=== PATIENT | male | born 2000 | race Caucasian/White ===

== ENCOUNTER 2020-04-08 05:43 | Outpatient (RCR) | payer OTHER ==
[~2020-04-08] VITALS: Ht 180.3 cm; Wt 78.6 kg
== END 2020-04-08 12:13 | disposition home or self-care (01) ==
LOC: PREOP 05:43
PROVIDERS: ATTEND Surgery
DX: Z01.812 Encounter for preprocedural laboratory examination (principal); K40.90 Unilateral inguinal hernia, without obstruction or gangrene, not specified as recurrent

== ENCOUNTER 2020-04-14 09:48 | Day surgery (SDC) | payer OTHER ==
[~2020-04-14] VITALS: Ht 180.3 cm; Wt 78.6 kg
[2020-04-14] VITALS (9 sets, daily range): BP systolic 120–139; BP diastolic 73–87
[2020-04-14] MEDS ORDERED: WATER (STERILE) FOR INJECTION 10 ML ONE (10:10)
[2020-04-14] MEDS ORDERED: ceFAZolin INJECTION 1,000 MG ONE (10:10)
[2020-04-14] MEDS: LACTATED RINGERS 1,000 ML IV PRN ×2 (10:12→12:08)
[2020-04-14] MEDS ORDERED: ceFAZolin INJECTION 1,000 MG in WATER (STERILE) FOR INJECTION 10 ML IV ONE (10:15)
[2020-04-14] MEDS ORDERED: MIDAZOLAM 2 MG/2 ML (VERSED) VIAL ONE (11:26)
[2020-04-14] MEDS ORDERED: fentaNYL INJECTION 100 MCG/2 ML AMP ONE (11:26)
[2020-04-14] MEDS ORDERED: LIDOCAINE/EPI 1%-1:100,000 (XYLOCAINE) 50 ML ONE (11:28)
[2020-04-14] MEDS ORDERED: proPOfol 200 MG/20 ML (DIPRIVAN) VIAL IV ONE ×2 (11:32→12:16)
[2020-04-14] MEDS ORDERED: LIDOCAINE PF 2% 5 ML (XYLOCAINE) VIAL ONE (11:32)
[2020-04-14] MEDS ORDERED: ONDANSETRON 4 MG/2 ML (SDV) Z0FRAN ONE (11:32)
[2020-04-14] MEDS ORDERED: SEVOFLURANE (ULTANE) 15 ML INHAL SOLN ONE ×3 (11:32→12:24)
--- NOTE | 2020-04-14 12:24 | Progress Note-Post Operative ---
Post-Operative Progess Note Surgeon (s)/Drafter Landscape (s) Surgeon PHILIPPE DUKE DO Drafter Landscape: Dr. Amaro to assist in retraction disssection and closure. Pre-Operative Diagnosis right inguinal hernia Post-Operative Diagnosis direct right inguinal hernia Procedure & Operative Findings Date of Procedure 04/14/20 Procedure Performed/Findings PROCEDURE: Open right direct inguinal hernia repair. COMPLICATIONS: None. INDICATIONS: The patient is a 20 , male inguinal hernia. He understands risks and benefits of procedure and wished to proceed with procedure. Consent was signed in the chart. DESCRIPTION OF PROCEDURE: The patient was taken to the operating suite, was prepped and draped in sterile fashion. Surgical pause was performed. Local anesthetic was infiltrated and a 15 blade scalpel was used to make a skin incision in the lower quadrant. Cautery was used to dissect down the external oblique, which was then opened down through the external ring. The spermatic cord was then dissected around. Frankie drain was placed around it and was retracted out of the way. No indirect hernia present. There was a direct defect present. Contents were reduced. The transversalis fascia was then sutured to the shelving edge using 2-0 Vicryl. A ProGrip mesh was then cut to size, which was then secured to Doroteo's ligament and then incorporated around the spermatic cord in the usual fashion and placed under the external oblique. The wound was then irrigated with copious amounts of irrigation. The external oblique was then closed using 3-0 Vicryl in running fashion recreating the external ring. The subcutaneous tissue was then reapproximated with 3-0 Vicryl and the skin was then closed using 4-0 Monocryl in a running subcuticular fashion. The area was then washed and dried and sterile bandages were applied. The abdomen was then washed and dried, Skin Affix was placed over the incisions. The patient tolerated procedure well without any complications and was taken to the recovery room in stable condition Anesthesia Type general Estimated Blood Loss Estimated blood loss (mL): minimal Specimens/Packing Specimens Removed PHILIPPE Atkins DO Apr 14, 2020 12:24
--- NOTE | 2020-04-14 12:25 | Progress Note-Pre Operative ---
Pre-Operative Progress Note H&P Reviewed The H&P was reviewed, patient examined and no changes noted. Date Seen by Provider: Apr 14, 2020 Time Seen by Provider: 11:30 Date H&P Reviewed: Apr 14, 2020 Time H&P Reviewed: 11:30 Pre-Operative Diagnosis: right inguinal hernia PHILIPPE DUKE DO Apr 14, 2020 12:25
[2020-04-14] MEDS ORDERED: ACHD5005 PO (12:30)
[2020-04-14] MEDS ORDERED: DOCU-143 PO (12:30)
--- NOTE | 2020-04-14 12:30 | Discharge Inst-Simple/Standard ---
Discharge Inst-Standard Discharge Medications New, Converted or Re-Newed RX: RX on Chart Patient Instructions/Follow Up Plan of Care/Instructions/FU: 2-3 weeks Marilu Activity as Tolerated: No Discharge Diet: Regular Diet Other Inst to Patient Follow up Appt: Make appointment for 2-3 weeks. Instructions: No lifting greater than 10 pounds. No strenuous activity. May shower in 24 hours, no tub bath or soaking. Use incentive spirometer at home as directed. No Smoking Skin/Wound Care: You have special glue over your incision that will fall off on it's own. Symptoms to Report: Appetite Changes, Extremity Discoloration, Numbness/Tingling, Swelling Increased, Bleeding Excessive, Eyesight Changes, Pain Increased, Urine Color Change, Constipation(Persistent), Fever over 101 degree F, Pain/Pressure in chest, Urinating Difficulty, Cough Up/Vomit Blood, Heart Beat Irreg/Pounding, Pain/Pressure in jaw, Vaginal Bleeding Increase, Cramps in feet or legs, Lightheadedness, Pain/Pressure in shoulder, Diarrhea(Persistent), Memory Changes Suddenly, Questions/Concerns, Weight gain consecutive days, Dizziness/Fainting, Nausea/Vomiting, Shortness of Breath, Weight gain over 2 pounds If questions or concerns contact your physician Or seek help at emergency department. PHILIPPE DUKE DO Apr 14, 2020 12:30
[2020-04-14] MEDS ORDERED: MEPERIDINE (DEMEROL) INJ 50 MG/ML ONE (12:38)
[2020-04-14] MEDS ORDERED: HYDROmorphone 2 MG/ML VIAL (DILAUDID) IV ONE (12:45)
[2020-04-14] MEDS ORDERED: morphine INJ 10 MG/ML 1ML (SYR OR VIAL) IVP ONE (12:45)
[2020-04-14] MEDS ORDERED: MEPERIDINE (DEMEROL) INJ 50 MG/ML IVP ONE (12:45)
[2020-04-14] MEDS ORDERED: ONDANSETRON 4 MG/2 ML (SDV) Z0FRAN IVP PRN (12:45)
--- NOTE | 2020-04-14 13:01 | Anesthesia-General Post-Op ---
General Patient Condition Mental Status/LOC: Same as Preop Cardiovascular: Satisfactory Nausea/Vomiting: Absent Respiratory: Satisfactory Pain: Controlled Complications: Absent Post Op Complications Complications None Follow Up Care/Instructions Patient Instructions None needed. Anesthesia/Patient Condition Patient Condition Patient is doing well, no complaints, stable vital signs, no apparent adverse anesthesia problems. No complications reported per nursing. CY MISHRA CRNA Apr 14, 2020 13:01
[2020-04-14] MEDS ORDERED: HYDROcodone/APAP 5 MG/325 MG (LORTAB) TAB ONE (14:03)
[2020-04-14] MEDS ORDERED: HYDROcodone/APAP 5 MG/325 MG (LORTAB) TAB PO ONE (14:15)
== END 2020-04-14 14:30 | disposition home or self-care (01) ==
LOC: SDC 09:48
PROVIDERS: ATTEND Surgery
DX: K40.90 Unilateral inguinal hernia, without obstruction or gangrene, not specified as recurrent (principal); Z88.5 Allergy status to narcotic agent
CPT/HCPCS: 49505; 87081; C1781